=== PATIENT | female | born 1940 | race Caucasian/White ===

== ENCOUNTER 2017-10-27 05:18 | Inpatient (IN) | payer MEDICARE ==
[2017-10-25 13:01] LABS: BASOPHILS # (AUTO) 0.1 (0.0-0.1); BASOPHILS % 0.9 % (0.0-1.0); EOSINOPHILS # (AUTO) 0.3 (0.0-0.4); EOSINOPHILS % 4.6 % (0.0-6.0); HEMATOCRIT 37.5 % (34.2-44.1); HEMOGLOBIN 12.3 g/dL (12.0-16.0); LYMPHOCYTES # (AUTO) 2.2 (1.0-3.2); LYMPHOCYTES % 32.8 % (18.0-39.1); MEAN CORPUSCULAR HEMOGLOBIN 32.4 pg (28-32); MEAN CORPUSCULAR HGB CONC 32.8 g/dL (31-35); MEAN CORPUSCULAR VOLUME 98.7 fL (81-99); MONOCYTES # (AUTO) 0.5 (0.2-0.8); MONOCYTES % 7.9 % (4.4-11.3); NEUTROPHILS # (AUTO) 3.6 (2.1-6.9); NEUTROPHILS % 53.4 % (38.7-80.0); PLATELET COUNT 353 x10e3/uL (140-360); RED CELL DISTRIBUTION WIDTH 12.9 % (11.7-14.4)
[2017-10-25 13:10] LABS: ANION GAP 13.2 mmol/L (8-16); CALCIUM 9.5 mg/dL (8.4-10.2); CREATININE, SERUM 0.94 mg/dL (0.57-1.11); POTASSIUM 4.2 mmol/L (3.5-5.1)
--- NOTE | 2017-10-25 14:07 | Diagnostic Imaging Report ---
PROCEDURE: X-RAY CHEST, TWO VIEWS COMPARISON: None. INDICATIONS: PREOPERATIVE CHEST XRAY FOR COLON SURGERY FINDINGS: The lungs are well-inflated. There are diffuse coarse interstitial opacities throughout the lungs. No airspace consolidation, pleural effusion, or pneumothorax. Tortuosity and atherosclerotic calcification of the thoracic aorta. Normal heart size. Age-indeterminate moderate anterior compression deformity of T11 or T12 with approximately 50% loss of anterior vertebral body height. CONCLUSION: Diffuse, coarse reticular opacities throughout the lungs suggestive of fibrotic changes, which may be age-related or indicative of interstitial lung disease. CT scan of the chest without contrast may be of benefit for further evaluation. Age indeterminate moderate anterior compression deformity of T11 or T12. Point tenderness over this region of the spine would suggest relative acuity. Findings were discussed by telephone with Ms. Baeza of Dr. Ron's office at 2:05 PM on 10/25/2017. Dictated by: Stan Dinh M.D. on 10/25/2017 at 14:16 Electronically approved by: Stan Dinh M.D. on 10/25/2017 at 14:16
[~2017-10-27 05:18] MED LIST: DICYCLOMINE HCL20 MG PO; PANTOPRAZOLE SO40 MG PO; TRAZODONE HCL100 MG PO
[2017-10-27] MEDS ORDERED: CEFOXITIN 1GM/ DEXTROSE 50ML 100 ML IV ONE (06:05)
[2017-10-27] MEDS ORDERED: BUPIVACAINE HCL 0.5% INJ 30 ML VIAL INJ ONE (06:28)
[2017-10-27] MEDS: DEXTROSE 5%/LACTATED RINGERS 1,000 ML IV SCH ×2 (09:01→18:02)
[2017-10-27] MEDS ORDERED: ACETAMINOPHEN 1000 MG/100 ML IV PRN (09:15)
[2017-10-27] MEDS ORDERED: DIPHENHYDRAMINE HCL 25 MG CAP PO PRN (09:15)
[2017-10-27] MEDS ORDERED: NALOXONE HCL INJ 0.4 MG/ML AMP IV PRN (09:15)
[2017-10-27] MEDS: MORPHINE SULFATE 1 MG/ML 30ML PCA IV PRN ×2 (09:28→17:52)
[2017-10-27] MEDS ORDERED: MORPHINE SULFATE 2 MG/ML SYR ONE (09:28)
[2017-10-27] MEDS ORDERED: FENTANYL CITRATE/PF 100MCG/2 ML INJ ONE ×2 (09:46→19:13)
[2017-10-27 10:15] VITALS: BP 164/77
[2017-10-27 10:26] VITALS: BP 164/77
[2017-10-27 12:00] VITALS: BP 136/69
[2017-10-27] MEDS: CEFOXITIN 1GM/ DEXTROSE 50ML 50 ML IV SCH ×2 (12:18→18:02)
[2017-10-27 16:00] VITALS: BP 126/58
--- NOTE | 2017-10-27 16:08 | Operative Report ---
DATE OF PROCEDURE: October 27, 2017 PREOPERATIVE DIAGNOSIS: Recurrent left colon diverticulitis. POSTOPERATIVE DIAGNOSIS: Recurrent left colon diverticulitis. PROCEDURE: Laparoscopic-assisted left colon resection. WILDLIFE TECHNICIAN: Alon Snell. ANESTHESIA: General endotracheal. INDICATIONS AND FINDINGS: Patient is a 77-year-old female who has had recurrent episodes of diverticulitis. At surgery, there was redundant left colon with extensive diverticular disease with areas of scarring and fibrosis in the mid sigmoid colon. Diverticular disease extending from the distal descending colon to the distal sigmoid colon. There were adhesions involving the omentum. Small bowel appeared normal. The transverse colon and right colon appeared normal. Liver was normal. TECHNIQUE: After adequate general endotracheal anesthesia with patient in supine position, the abdomen was prepped and draped in sterile fashion with Dakota solution. Skin of the umbilicus was infiltrated with 0.5% Marcaine. Incision made in the umbilicus. Abdominal wall was elevated and Veress needle was introduced. Pneumoperitoneum was then created. A 5 mm trocar and cannula was then passed through the umbilical wound. Laparoscopic camera was introduced. Initial laparoscopy revealed extensive adhesions involving the omentum. A 5 mm trocar and cannula was placed in the epigastrium. The adhesions in the left lower quadrant were lysed using a LigaSure device, which exposed the left colon. Adhesions all the way down to the pelvis were lysed. There were adhesions on the right side of the abdomen involving omentum. These were left in place. A 5 mm trocar and cannula was then placed in the suprapubic area. The left colon was mobilized from the splenic flexure all the way down to the sigmoid colon. Peritoneal attachments were divided freeing the colon completely. Some adhesions to the colon also were divided with LigaSure device. Care was taken not to injure the ureter. Mobilization continued down the sigmoid colon also, which was somewhat fibrotic in the mid sigmoid colon and adhesed to itself. Once all the left colon was mobilized completely, there was noted an area of fairly dense adhesions involving the mid and distal sigmoid colon and decided to switch to open surgery at this point. A lower midline incision was made and the peritoneal cavity was entered. The adhesions to the sigmoid colon were lysed. There was some fibrosis involving the colon. No purulence was seen. Care was taken not to injure the left ureter. The colon was completely mobilized. The area of diverticular disease involved the distal descending colon to the distal sigmoid. This portion of the colon was resected. The distal descending colon was divided with a JADA stapler. Mesentery divided with LigaSure device down to area where there was no significant diverticular disease distally and no fibrosis. The distal sigmoid colon was then divided with JADA stapler and the specimen removed. Anastomosis was made in an end-to-end fashion between the proximal and distal colon. The 2 ends met easily with no tension. This anastomosis was made in 2 layers using 3-0 Vicryl and 3-0 silk. Mesenteric defect was now closed. Hemostasis was seen to be adequate. The peritoneal cavity was irrigated with saline and inspected for hemostasis, which was seen to be adequate. The midline fascia was then closed with running suture of #1 PDS. Subcutaneous tissue was irrigated with saline. Skin to all wounds closed with chris. Sterile dressing was applied to each wound. Patient tolerated the procedure well. Estimated blood loss was 75 mL. There were no complications. All counts were correct. Patient was taken to the recovery room in satisfactory condition. Job#: [id number] PAT cc:ISABELLA MOREIRA MD
[2017-10-27] MEDS ORDERED: ROCURONIUM BROMIDE 10 MG/ML 5ML VIAL ONE (17:48)
[2017-10-27] MEDS ORDERED: LIDOCAINE HCL 2% LOCAL INJ 5 ML SDV VIAL INJ ONE (17:48)
[2017-10-27] MEDS ORDERED: SEVOFLURANE INHAL SOLN 250 ML PEN BTL ONE (17:48)
[2017-10-27] MEDS ORDERED: GLYCOPYRROLATE INJ 1MG/ 5 ML SYR ONE (17:48)
[2017-10-27] MEDS ORDERED: ACETAMINOPHEN 1000 MG/100 ML IV ONE (17:48)
[2017-10-27] MEDS ORDERED: ONDANSETRON HCL INJ 2 MG/ML VIAL ONE (17:48)
[2017-10-27] MEDS ORDERED: DEXAMETHASONE SOD PHOS INJ 4 MG/ML VIAL ONE (17:48)
[2017-10-27] MEDS ORDERED: LIDOCAINE HCL 2% JELLY 5 ML TUBE ONE (17:48)
[2017-10-27] MEDS ORDERED: NEOSTIGMINE 5 MG/5ML SYR ONE (17:48)
[2017-10-27] MEDS ORDERED: PROPOFOL IV EMULSION 10 MG/ML 20 ML VIAL ONE (17:48)
[2017-10-27] MEDS ORDERED: MIDAZOLAM HCL 2 MG/2 ML VIAL ONE (19:13)
[2017-10-27] MEDS ORDERED: MORPHINE SULFATE 1 MG/ML 30ML PCA IV PRN (19:45)
[2017-10-27 20:00] VITALS: BP 104/54
[2017-10-27] MEDS: TRAZODONE HCL 50 MG TAB PO SCH (21:00)
[2017-10-27] MEDS ORDERED: NON-FORMULARY MEDICATION (Trazodone Hcl 100 MG) PO SCH (21:00)
[2017-10-27 22:11] VITALS: BP 104/54
[2017-10-28] VITALS: BP 117/66
[2017-10-28] MEDS: CEFOXITIN 1GM/ DEXTROSE 50ML 50 ML IV SCH (00:30)
[2017-10-28] MEDS: DEXTROSE 5%/LACTATED RINGERS 1,000 ML IV SCH ×3 (03:10→17:01)
[2017-10-28 04:00] VITALS: BP 131/63
[2017-10-28 07:09] LABS: BASOPHILS % 0.2 % (0.0-1.0); EOSINOPHILS % 0.4 % (0.0-6.0); HEMATOCRIT 34.6 % (34.2-44.1); HEMOGLOBIN 11.2 g/dL (12.0-16.0); LYMPHOCYTES # (AUTO) 1.8 (1.0-3.2); LYMPHOCYTES % 19.6 % (18.0-39.1); MEAN CORPUSCULAR HEMOGLOBIN 32.3 pg (28-32); MEAN CORPUSCULAR HGB CONC 32.4 g/dL (31-35); MEAN CORPUSCULAR VOLUME 99.7 fL (81-99); MONOCYTES # (AUTO) 0.8 (0.2-0.8); MONOCYTES % 8.5 % (4.4-11.3); NEUTROPHILS # (AUTO) 6.6 (2.1-6.9); NEUTROPHILS % 70.9 % (38.7-80.0); PLATELET COUNT 346 x10e3/uL (140-360); RED BLOOD COUNT 3.47 x10e6/uL (3.6-5.1)
[2017-10-28 07:44] LABS: ANION GAP 13.2 mmol/L (8-16); CALCIUM 8.8 mg/dL (8.4-10.2); CREATININE, SERUM 0.91 mg/dL (0.57-1.11); POTASSIUM 4.2 mmol/L (3.5-5.1)
[2017-10-28 08:00] VITALS: BP 132/80
[2017-10-28] MEDS: PANTOPRAZOLE SOD 40 MG TABEC PO SCH (09:00)
[2017-10-28 12:00] VITALS: BP 100/61
[2017-10-28] MEDS: MORPHINE SULFATE 2 MG/ML SYR IV PRN ×2 (13:35→22:29)
[2017-10-28 16:00] VITALS: BP 175/93
[2017-10-28 16:58] LABS: BASOPHILS % 0.3 % (0.0-1.0); EOSINOPHILS # (AUTO) 0.1 (0.0-0.4); EOSINOPHILS % 0.6 % (0.0-6.0); HEMATOCRIT 33.6 % (34.2-44.1); LYMPHOCYTES # (AUTO) 2.2 (1.0-3.2); LYMPHOCYTES % 18.8 % (18.0-39.1); MEAN CORPUSCULAR HEMOGLOBIN 32.4 pg (28-32); MEAN CORPUSCULAR HGB CONC 32.7 g/dL (31-35); MEAN CORPUSCULAR VOLUME 99.1 fL (81-99); MONOCYTES # (AUTO) 0.9 (0.2-0.8); MONOCYTES % 7.8 % (4.4-11.3); NEUTROPHILS # (AUTO) 8.5 (2.1-6.9); NEUTROPHILS % 72.2 % (38.7-80.0); PLATELET COUNT 318 x10e3/uL (140-360); RED BLOOD COUNT 3.39 x10e6/uL (3.6-5.1); RED CELL DISTRIBUTION WIDTH 12.8 % (11.7-14.4)
[2017-10-28 17:01] LABS: INR 1.17; PARTIAL THROMBOPLASTIN TIME 32.2 seconds (23.8-35.5); PROTHROMBIN TIME 15.5 seconds (11.9-14.5)
[2017-10-28 17:09] LABS: ALANINE AMINOTRANSFERASE 12 IU/L (0-55); ALBUMIN 2.7 g/dL (3.5-5.0); ALBUMIN/GLOBULIN RATIO 0.7 (0.8-2.0); ALKALINE PHOSPHATASE 47 IU/L (40-150); ANION GAP 10.4 mmol/L (8-16); BLOOD UREA NITROGEN 5 mg/dL (7-26); BUN/CREATININE RATIO 6 (6-25); CALCIUM 8.5 mg/dL (8.4-10.2); CARBON DIOXIDE 29 mmol/L (22-29); CHLORIDE 103 mmol/L (98-107); EST GLOMERULAR FILTRATION RATE > 60 ML/MIN (60-); GLUCOSE 148 mg/dL (74-118); POTASSIUM 3.4 mmol/L (3.5-5.1); SODIUM 139 mmol/L (136-145)
[2017-10-28] MEDS ORDERED: SODIUM CHLORIDE 0.9% 500ML 500 ML IV ONE (17:15)
[2017-10-28] MEDS ORDERED: METRONIDAZOLE 500MG/NS 100ML 100 ML IV SCH (18:00)
[2017-10-28] MEDS ORDERED: LEVOFLOXACIN 500MG/D5W 100ML 100 ML IV SCH (18:00)
[2017-10-28] MEDS: ACETAMINOPHEN 1000 MG/100 ML IV SCH (18:24)
[2017-10-28 20:00] VITALS: BP 116/62
[2017-10-28] MEDS: METRONIDAZOLE 500MG/NS 100ML 100 ML IV SCH (20:40)
[2017-10-28] MEDS: TRAZODONE HCL 50 MG TAB PO SCH (21:00)
[2017-10-28] MEDS: LEVOFLOXACIN 500MG/D5W 100ML 100 ML IV SCH (22:00)
[2017-10-29] VITALS (8 sets, daily range): BP systolic 96–132; BP diastolic 57–68
[2017-10-29] MEDS: ACETAMINOPHEN 1000 MG/100 ML IV SCH ×3 (00:20→11:58)
[2017-10-29] MEDS: DEXTROSE 5%/LACTATED RINGERS 1,000 ML IV SCH ×3 (01:44→17:01)
[2017-10-29] MEDS: METRONIDAZOLE 500MG/NS 100ML 100 ML IV SCH ×3 (03:53→20:18)
[2017-10-29] MEDS: MORPHINE SULFATE 2 MG/ML SYR IV PRN (05:03)
[2017-10-29 07:58] LABS: HEMATOCRIT 31.6 % (34.2-44.1); HEMOGLOBIN 10.6 g/dL (12.0-16.0); MEAN CORPUSCULAR HGB CONC 33.5 g/dL (31-35); MEAN CORPUSCULAR VOLUME 98.4 fL (81-99); PLATELET COUNT 305 x10e3/uL (140-360); RED BLOOD COUNT 3.21 x10e6/uL (3.6-5.1); RED CELL DISTRIBUTION WIDTH 12.7 % (11.7-14.4)
[2017-10-29 08:13] LABS: ANION GAP 9.3 mmol/L (8-16); BLOOD UREA NITROGEN 5 mg/dL (7-26); BUN/CREATININE RATIO 7 (6-25); CALCIUM 8.4 mg/dL (8.4-10.2); CARBON DIOXIDE 26 mmol/L (22-29); CHLORIDE 106 mmol/L (98-107); CREATININE, SERUM 0.71 mg/dL (0.57-1.11); EST GLOMERULAR FILTRATION RATE > 60 ML/MIN (60-); GLUCOSE 169 mg/dL (74-118); POTASSIUM 3.3 mmol/L (3.5-5.1); SODIUM 138 mmol/L (136-145)
[2017-10-29] MEDS: PANTOPRAZOLE SOD 40 MG TABEC PO SCH (09:00)
[2017-10-29] MEDS ORDERED: POTASSIUM CHLORIDE 20MEQ/100ML 100 ML IV ONE (10:45)
[2017-10-29 12:26] LABS: EOSINOPHILS % (MANUAL) 1 % (0-7); LYMPHOCYTES % (MANUAL) 6 % (19-48); MONOCYTES % (MANUAL) 7 % (3.4-9.0); NEUTROPHILS % (MANUAL) 86 % (40-74); PLATELET ESTIMATE ADEQUATE; PLATELET MORPHOLOGY COMMENT NORMAL; RBC MORPHOLOGY COMMENT NORMAL
[2017-10-29] MEDS ORDERED: PANTOPRAZOLE 40 MG 10ML VIAL ONE (17:58)
[2017-10-29] MEDS: TRAZODONE HCL 50 MG TAB PO SCH (21:00)
[2017-10-29] MEDS: LEVOFLOXACIN 500MG/D5W 100ML 100 ML IV SCH (21:33)
[2017-10-30] VITALS: BP 172/93
[2017-10-30] MEDS: DEXTROSE 5%/LACTATED RINGERS 1,000 ML IV SCH ×3 (01:32→17:07)
[2017-10-30 04:00] VITALS: BP 137/76
[2017-10-30] MEDS: METRONIDAZOLE 500MG/NS 100ML 100 ML IV SCH ×3 (04:35→20:06)
[2017-10-30] MEDS ORDERED: KETOROLAC TROMETHAMINE 30 MG/ML VIAL IV PRN (06:45)
[2017-10-30 08:00] VITALS: BP 136/88
[2017-10-30] MEDS: ACETAMINOPHEN 1000 MG/100 ML IV SCH ×3 (08:30→17:07)
[2017-10-30 09:02] LABS: BASOPHILS % 0.2 % (0.0-1.0); EOSINOPHILS % 0.2 % (0.0-6.0); HEMOGLOBIN 11.4 g/dL (12.0-16.0); LYMPHOCYTES # (AUTO) 1.2 (1.0-3.2); LYMPHOCYTES % 6.5 % (18.0-39.1); MEAN CORPUSCULAR HEMOGLOBIN 32.4 pg (28-32); MEAN CORPUSCULAR HGB CONC 33.5 g/dL (31-35); MEAN CORPUSCULAR VOLUME 96.6 fL (81-99); MONOCYTES # (AUTO) 0.6 (0.2-0.8); MONOCYTES % 3.2 % (4.4-11.3); NEUTROPHILS % 89.3 % (38.7-80.0); PLATELET COUNT 399 x10e3/uL (140-360); RED BLOOD COUNT 3.52 x10e6/uL (3.6-5.1); RED CELL DISTRIBUTION WIDTH 12.8 % (11.7-14.4)
[2017-10-30 09:30] LABS: ALANINE AMINOTRANSFERASE 11 IU/L (0-55); ALBUMIN 2.2 g/dL (3.5-5.0); ALBUMIN/GLOBULIN RATIO 0.6 (0.8-2.0); ALKALINE PHOSPHATASE 56 IU/L (40-150); ANION GAP 10.4 mmol/L (8-16); BLOOD UREA NITROGEN 6 mg/dL (7-26); BUN/CREATININE RATIO 8 (6-25); CALCIUM 8.8 mg/dL (8.4-10.2); CARBON DIOXIDE 26 mmol/L (22-29); CHLORIDE 108 mmol/L (98-107); CREATININE, SERUM 0.74 mg/dL (0.57-1.11); EST GLOMERULAR FILTRATION RATE > 60 ML/MIN (60-); GLUCOSE 198 mg/dL (74-118); POTASSIUM 3.4 mmol/L (3.5-5.1); SODIUM 141 mmol/L (136-145)
[2017-10-30 12:00] VITALS: BP 126/71
[2017-10-30] MEDS: ONDANSETRON HCL INJ 2 MG/ML VIAL IV PRN ×2 (14:15→20:27)
[2017-10-30] MEDS: PANTOPRAZOLE 40 MG 10ML VIAL IV SCH (14:16)
[2017-10-30 16:12] VITALS: BP 142/88
[2017-10-30 20:00] VITALS: BP 142/70
[2017-10-30] MEDS: LEVOFLOXACIN 500MG/D5W 100ML 100 ML IV SCH (21:11)
[2017-10-30] MEDS: TRAZODONE HCL 50 MG TAB PO SCH (21:11)
[2017-10-31] VITALS: BP 170/74
[2017-10-31] MEDS: ACETAMINOPHEN 1000 MG/100 ML IV SCH (00:45)
[2017-10-31 02:28] VITALS: BP 170/74
[2017-10-31] MEDS: DEXTROSE 5%/LACTATED RINGERS 1,000 ML IV SCH (02:32)
[2017-10-31 04:00] VITALS: BP 162/70
[2017-10-31] MEDS: METRONIDAZOLE 500MG/NS 100ML 100 ML IV SCH ×3 (04:39→20:09)
[2017-10-31] MEDS ORDERED: ACETAMINOPHEN 325 MG TAB PO PRN (07:15)
[2017-10-31] MEDS ORDERED: HYDROCODONE/APAP 5MG-325MG TAB PO PRN (07:15)
[2017-10-31] MEDS ORDERED: SODIUM CHLORIDE FLUSH 10 ML SYR INJ PRN (07:15)
[2017-10-31] MEDS: PANTOPRAZOLE 40 MG 10ML VIAL IV SCH ×2 (08:35→15:46)
[2017-10-31 08:36] VITALS: BP 169/76
[2017-10-31 09:17] LABS: BASOPHILS % 0.3 % (0.0-1.0); EOSINOPHILS # (AUTO) 0.3 (0.0-0.4); EOSINOPHILS % 2.9 % (0.0-6.0); HEMATOCRIT 30.8 % (34.2-44.1); HEMOGLOBIN 10.2 g/dL (12.0-16.0); LYMPHOCYTES # (AUTO) 1.7 (1.0-3.2); LYMPHOCYTES % 14.7 % (18.0-39.1); MEAN CORPUSCULAR HEMOGLOBIN 32.3 pg (28-32); MEAN CORPUSCULAR HGB CONC 33.1 g/dL (31-35); MEAN CORPUSCULAR VOLUME 97.5 fL (81-99); MONOCYTES # (AUTO) 0.5 (0.2-0.8); MONOCYTES % 4.5 % (4.4-11.3); NEUTROPHILS # (AUTO) 8.9 (2.1-6.9); NEUTROPHILS % 76.9 % (38.7-80.0); PLATELET COUNT 374 x10e3/uL (140-360); RED BLOOD COUNT 3.16 x10e6/uL (3.6-5.1); RED CELL DISTRIBUTION WIDTH 12.8 % (11.7-14.4)
[2017-10-31 09:40] LABS: ALANINE AMINOTRANSFERASE 10 IU/L (0-55); ALBUMIN 2.2 g/dL (3.5-5.0); ALBUMIN/GLOBULIN RATIO 0.6 (0.8-2.0); ALKALINE PHOSPHATASE 47 IU/L (40-150); BLOOD UREA NITROGEN 6 mg/dL (7-26); BUN/CREATININE RATIO 8 (6-25); CALCIUM 8.2 mg/dL (8.4-10.2); CARBON DIOXIDE 25 mmol/L (22-29); CHLORIDE 107 mmol/L (98-107); CREATININE, SERUM 0.71 mg/dL (0.57-1.11); EST GLOMERULAR FILTRATION RATE > 60 ML/MIN (60-); GLUCOSE 139 mg/dL (74-118); SODIUM 139 mmol/L (136-145)
[2017-10-31] MEDS ORDERED: MAGNESIUM SULFATE 2GM/50ML 50 ML IV ONE ×2 (10:30→14:00)
[2017-10-31 12:00] VITALS: BP 146/68
[2017-10-31] MEDS ORDERED: POTASSIUM CHLORIDE 100 ML IV ONE (16:00)
[2017-10-31 20:00] VITALS: BP 150/69
[2017-10-31] MEDS: LEVOFLOXACIN 500MG/D5W 100ML 100 ML IV SCH (21:22)
[2017-10-31] MEDS: TRAZODONE HCL 50 MG TAB PO SCH (21:23)
[2017-11-01] VITALS: BP 137/66
[2017-11-01 04:00] VITALS: BP 129/60
[2017-11-01] MEDS: METRONIDAZOLE 500MG/NS 100ML 100 ML IV SCH (04:08)
[2017-11-01] MEDS ORDERED: SODIUM CHLORIDE 0.9% 250ML 250 ML ONE (04:08)
[2017-11-01 07:26] LABS: BASOPHILS % 0.3 % (0.0-1.0); EOSINOPHILS # (AUTO) 0.3 (0.0-0.4); EOSINOPHILS % 2.9 % (0.0-6.0); HEMATOCRIT 31.7 % (34.2-44.1); HEMOGLOBIN 10.5 g/dL (12.0-16.0); LYMPHOCYTES # (AUTO) 1.6 (1.0-3.2); LYMPHOCYTES % 16.8 % (18.0-39.1); MEAN CORPUSCULAR HEMOGLOBIN 32.2 pg (28-32); MEAN CORPUSCULAR HGB CONC 33.1 g/dL (31-35); MEAN CORPUSCULAR VOLUME 97.2 fL (81-99); MONOCYTES # (AUTO) 0.6 (0.2-0.8); MONOCYTES % 5.8 % (4.4-11.3); NEUTROPHILS # (AUTO) 7.2 (2.1-6.9); NEUTROPHILS % 73.6 % (38.7-80.0); PLATELET COUNT 391 x10e3/uL (140-360); RED BLOOD COUNT 3.26 x10e6/uL (3.6-5.1); RED CELL DISTRIBUTION WIDTH 12.9 % (11.7-14.4)
[2017-11-01 07:35] VITALS: BP 129/60
[2017-11-01 07:48] LABS: ALANINE AMINOTRANSFERASE 11 IU/L (0-55); ALBUMIN 2.4 g/dL (3.5-5.0); ALBUMIN/GLOBULIN RATIO 0.6 (0.8-2.0); ALKALINE PHOSPHATASE 47 IU/L (40-150); ANION GAP 11.3 mmol/L (8-16); BLOOD UREA NITROGEN 8 mg/dL (7-26); BUN/CREATININE RATIO 11 (6-25); CALCIUM 8.2 mg/dL (8.4-10.2); CARBON DIOXIDE 25 mmol/L (22-29); CHLORIDE 107 mmol/L (98-107); CREATININE, SERUM 0.72 mg/dL (0.57-1.11); EST GLOMERULAR FILTRATION RATE > 60 ML/MIN (60-); GLUCOSE 122 mg/dL (74-118); POTASSIUM 3.3 mmol/L (3.5-5.1); SODIUM 140 mmol/L (136-145)
[2017-11-01] MEDS: PANTOPRAZOLE 40 MG 10ML VIAL IV SCH (07:52)
[2017-11-01 08:53] VITALS: BP 128/86
--- NOTE | 2017-11-01 15:12 | Discharge Summary ---
ADMITTING DIAGNOSIS: Recurrent sigmoid diverticulitis. DISCHARGE DIAGNOSIS: Recurrent sigmoid diverticulitis. PRINCIPAL PROCEDURE: Laparoscopic-assisted left colon resection. HISTORY OF PRESENT ILLNESS: The patient is a 77-year-old female who has had recurrent episodes of sigmoid colon diverticulitis. Colonoscopy showed diverticular disease involving the left colon. HOSPITAL COURSE: The patient was admitted to the hospital and underwent surgery the same day as admission. She had laparoscopic-assisted left colon resection. Postoperatively, the patient was stable. She had some confusion. This resolved when her pain medication was adjusted. She was seen in consultation by Dr. Linares for medical management. She remained hemodynamically stable. She was started on a liquid diet on the 3rd postop day, which she tolerated without problem. Diet was advanced to a regular diet, and bowel function returned to normal. She was discharged home on the 5th postop day. At the time of discharge, she was afebrile and tolerating a diet. Bowel function was normal. Discharge medication was Davison for pain, and she will continue on the same home medications as she took prior to admission. She will follow up with Dr. Ron approximately 1 week after discharge. Sent home in satisfactory condition on a regular diet. KARL RON MD Job#: [id number]
== END 2017-11-01 09:16 | disposition home or self-care (01) | DRG 330 ==
LOC: OR 05:18 → MED/SURG 09:31
PROVIDERS: ADMIT Surgery; ATTEND Surgery
PROC: 0DNN4ZZ Release Sigmoid Colon, Percutaneous Endoscopic Approach (ICD-10-PCS; 2017-10-27)
PROC: 0DBG0ZZ Excision of Left Large Intestine, Open Approach (ICD-10-PCS; principal; 2017-10-27 07:00)
DX: K57.32 Diverticulitis of large intestine without perforation or abscess without bleeding (principal); K56.7 Ileus, unspecified; J44.9 Chronic obstructive pulmonary disease, unspecified; K58.9 Irritable bowel syndrome, unspecified; D64.9 Anemia, unspecified; R41.0 Disorientation, unspecified; T40.2X5A Adverse effect of other opioids, initial encounter
CPT/HCPCS: 36415; 71046; 80048; 80053; 83605; 83735; 85007; 85025; 85027; 85610; 85730; 87040; 87086; 88307; 93005; J1100; J1956; J2001; J2250; J2270; J2405; J3480; J7040; J7050; J7120